=== PATIENT | female | born 1955 | race Hispanic/Latino ===

== ENCOUNTER 2024-01-17 23:47 | Observation (INO) | payer MEDICARE ==
[2024-01-18 01:11] LABS: #Basophils 0.04 10x3/uL (0.0-0.2); %Basophils 0.7 % (0.0-1.0); %Eosinophils 4.5 % (0.0-10.0); %Lymphocytes 40.5 % (21.0-51.0); %Monocytes 6.9 % (0.0-10.0); %Neutrophils 47.1 % (42.0-75.0); Hematocrit 34.4 % (36.0-47.0); Hemoglobin 11.5 g/dL (12.0-16.0); Mean Corpuscular HGB CONC 33.4 g/dL (32.0-36.0); Mean Corpuscular Hemoglobin 29.5 pg (27.0-31.0); Mean Corpuscular Volume 88.2 fL (78.0-98.0); Mean Platelet Volume 10.2 fL (7.4-10.4); Platelet Count 289 10x3/uL (130-400); RBC Distribution Width 13.8 % (11.5-14.5)
[2024-01-18 01:23] LABS: INR-International Normal Ratio 0.9; Prothrombin Time 12.5 sec (12.0-14.7)
[2024-01-18 01:24] LABS: PTT 28.7 sec (22.9-36.1)
[2024-01-18 01:26] LABS: ALT (SGPT) 23 U/L (8-55); AST (SGOT) 25 U/L (5-34); Albumin 3.7 g/dL (3.4-4.8); Alkaline Phosphatase 65 U/L (40-110); Anion Gap 13 mmol/L (10-20); BUN (Urea Nitrogen) 14 mg/dL (9.8-20.1); Bilirubin, Total 0.3 mg/dL (0.2-1.2); Calc. Creatinine Clearance 0 mL/min (70-130); Calcium 9.6 mg/dL (7.8-10.44); Carbon Dioxide 23 mmol/L (23-31); Chloride 103 mmol/L (98-107); Estimated GFR 69; Globulin 3.6 g/dL (2.4-3.5); Glucose 134 mg/dL (83-110); Potassium 3.8 mmol/L (3.5-5.1); Protein, Total 7.3 g/dL (5.8-8.1); Sodium 135 mmol/L (136-145)
[2024-01-18 01:50] LABS: Troponin I Less than 0.010 ng/mL (< 0.028)
[2024-01-18 05:17] VITALS: BMI 32.2
[2024-01-18] MEDS ORDERED: Dextrose 50% Abboject 50 ML SYRINGE SLOW IVP PRN (07:42)
[2024-01-18] MEDS ORDERED: Dextrose 5% in Water 1,000 ML IV PRN (07:42)
[2024-01-18] MEDS ORDERED: Glucagon 1 MG/ML KIT IM PRN (07:42)
[2024-01-18] MEDS ORDERED: Insulin Lispro 100 UNIT/ML 10 ML VIAL SC PRN (07:42)
[2024-01-18] MEDS: Aspirin 81 mg Enteric Coated Tablet PO SCH (09:35)
[2024-01-18] MEDS ORDERED: Aspirin Chewable 81 MG TAB ONE (09:49)
[2024-01-18] MEDS ORDERED: Ketorolac Tromethamine 30 MG (1 mL) VIAL ONE (14:46)
[2024-01-18] MEDS: Ketorolac Tromethamine 30 MG (1 mL) VIAL IVP SCH (14:55)
[2024-01-19] MEDS: Amoxicillin/Potassium Clav 875 MG TAB PO SCH (02:34)
[2024-01-19] MEDS: Atorvastatin Calcium 40 MG TAB PO SCH (02:35)
[2024-01-19 04:36] LABS: #Basophils 0.04 10x3/uL (0.0-0.2); %Basophils 0.6 % (0.0-1.0); %Eosinophils 4.9 % (0.0-10.0); %Lymphocytes 38.6 % (21.0-51.0); %Monocytes 6.5 % (0.0-10.0); %Neutrophils 49.2 % (42.0-75.0); Hematocrit 33.6 % (36.0-47.0); Mean Corpuscular HGB CONC 32.7 g/dL (32.0-36.0); Mean Corpuscular Hemoglobin 29.1 pg (27.0-31.0); Mean Corpuscular Volume 88.9 fL (78.0-98.0); Mean Platelet Volume 10.6 fL (7.4-10.4); Platelet Count 290 10x3/uL (130-400); RBC Distribution Width 13.7 % (11.5-14.5); Red Blood Cell (RBC) Count 3.78 mill/uL (4.20-5.40)
[2024-01-19 04:49] LABS: Hemoglobin A1c 6.8 % (4.0-6.0)
[2024-01-19 04:57] LABS: Anion Gap 10 mmol/L (10-20); BUN (Urea Nitrogen) 18 mg/dL (9.8-20.1); Calc. Creatinine Clearance 74 mL/min (70-130); Carbon Dioxide 26 mmol/L (23-31); Cardiac Risk 3.2 (Less than 4.5); Chloride 102 mmol/L (98-107); Cholesterol 136 mg/dl (< 200 Desired); Estimated GFR 75; Glucose 80 mg/dL (83-110); HDL Cholesterol 42 mg/dL (>60 Neg Risk); LDL Cholesterol, Calculated 71 mg/dL; Potassium 3.7 mmol/L (3.5-5.1); Sodium 134 mmol/L (136-145); Triglycerides 114 mg/dL (Less than 150)
[2024-01-19] MEDS: Levothyroxine Sodium 125 MCG TAB PO SCH (05:38)
[2024-01-19] MEDS: Acetaminophen 325 MG TAB PO PRN (06:47)
[2024-01-19] MEDS: Fenofibrate Nanocrystallized 145 MG TAB PO SCH (08:54)
[2024-01-19 10:15] VITALS: BP 174/75; TEMP 97.8
== END 2024-01-19 12:02 | disposition home or self-care (01) ==
LOC: ERS 23:47 → ERHOLD 01-18 04:21 → 2SE 01-18 17:27
PROVIDERS: ADMIT Family Medicine; ATTEND Internal Medicine
DX: R53.1 Weakness (principal); R47.81 Slurred speech; G51.0 Bell's palsy; I10 Essential (primary) hypertension; E78.00 Pure hypercholesterolemia, unspecified; E03.9 Hypothyroidism, unspecified; E11.9 Type 2 diabetes mellitus without complications; Z87.59 Personal history of other complications of pregnancy, childbirth and the puerperium; Z90.49 Acquired absence of other specified parts of digestive tract; Z98.890 Other specified postprocedural states; Z79.4 Long term (current) use of insulin; Z79.890 Hormone replacement therapy; Z79.899 Other long term (current) drug therapy
CPT/HCPCS: 70496; 70498; 70551; 80048; 80053; 80061; 82962 ×2; 83036; 84443; 84484; 85025 ×2; 85610; 85730; 93005; 96374; 97530; G0378 ×3; J1885; 36415; 36416